=== PATIENT | male | born 1960 | race Two or more races ===

== ENCOUNTER 2017-07-05 19:43 | Emergency (ER) | payer OTHER ==
[~2017-07-05] VITALS: Ht 167.6 cm; Wt 64.6 kg
[2017-07-05 20:07] VITALS: BP 123/79
== END 2017-07-06 02:22 | disposition home or self-care (01) ==
LOC: ER 19:52
DX: S98.131A Complete traumatic amputation of one right lesser toe, initial encounter (principal); F17.210 Nicotine dependence, cigarettes, uncomplicated; X58.XXXA Exposure to other specified factors, initial encounter; Y93.89 Activity, other specified; Y92.89 Other specified places as the place of occurrence of the external cause; Y99.8 Other external cause status
CPT/HCPCS: 73630